=== PATIENT | male | born 1970 | race Caucasian/White ===

== ENCOUNTER 2017-03-01 00:43 | Inpatient (IN) | payer MEDICAID ==
[~2017-03-01] VITALS: Ht 175.3 cm; Wt 72.6 kg
[2017-03-01] MEDS ORDERED: MORPHINE SULFATE INJ 2 MG/ML DISP.SYRIN IV ONE (01:30)
[2017-03-01] MEDS ORDERED: IV NS 0.9% 1,000 ML BAG IV ONE (01:30)
[2017-03-01] MEDS ORDERED: ONDANSETRON HCL/PF 4 MG/2 ML VIAL IVP ONE (01:30)
[2017-03-01] MEDS ORDERED: MORPHINE SULFATE INJ 2 MG/ML DISP.SYRIN ONE (01:54)
[2017-03-01] MEDS ORDERED: ONDANSETRON HCL/PF 4 MG/2 ML VIAL ONE (01:54)
--- NOTE | 2017-03-01 02:00 | NUR ---
pt with mid epigastric pain,has been vomitting for 2days, c/o heartburn, possible dehydration, alert, follows commands, anxious, restless, iv started, labs drawn, meds given, v/s stable, no pain, family at the bedside.
[2017-03-01 02:05] LABS: BASOPHILS % (AUTO) 0.2 % (0.0-2.0); EOSINOPHILS % (AUTO) 0.1 % (0.0-6.0); HEMATOCRIT 54 % (39-51); HEMOGLOBIN 17.8 g/dL (13.5-17.5); LYMPHOCYTES # (AUTO) 1.3 /CMM (0.8-4.8); LYMPHOCYTES % (AUTO) 9.3 % (20.0-44.0); MEAN CORPUSCULAR HEMOGLOBIN 29 PG (26.0-33.0); MEAN CORPUSCULAR HGB CONC 33 g/dl (31.0-36.0); MEAN CORPUSCULAR VOLUME 86 fL (80-96); MONOCYTES # (AUTO) 0.3 /CMM (0.1-1.30); MONOCYTES % (AUTO) 2.2 % (2.0-12.0); NEUTROPHILS # (AUTO) 12.4 /CMM (1.8-8.9); NEUTROPHILS % (AUTO) 88.2 % (43.0-81.0); PLATELET COUNT (AUTO) 258 /CMM (150-450); RDW COEFFICIENT OF VARIATION 13.1 (11.5-15.0); RED BLOOD CELL COUNT(AUTO) 6.26 MIL/uL (4.5-6.0); WHITE BLOOD COUNT (AUTO) 14.1 K/uL (4.3-11.0)
[2017-03-01 02:15] LABS: CALCIUM, SERUM 10.2 mg/dL (8.5-10.1); CARBON DIOXIDE 31 mmol/L (21-32); CHLORIDE 99 mmol/L (98-107); CREATININE 1.4 mg/dL (0.6-1.3); GLUCOSE 136 mg/dL (74-106); SODIUM SERUM 138 mmol/L (136-145); UREA NITROGEN, BLOOD 17 mg/dL (7-18)
[2017-03-01 02:19] LABS: INR 0.91 (0.87-1.13); PROTHROMBIN TIME 9.5 SECS (9.5-12.7)
[2017-03-01 02:21] LABS: ALANINE AMINOTRANSFERASE 83 U/L (12-78); ALBUMIN 4.3 g/dL (3.4-5.0); ALKALINE PHOSPHATASE 130 U/L (46-116); ASPARTATE AMINOTRANSFERASE 31 U/L (15-37); BILIRUBIN,DIRECT 0.1 mg/dL (0.0-0.2); BILIRUBIN,TOTAL 0.7 mg/dL (0.2-1.0); LIPASE 191 U/L (73-393); TOTAL PROTEIN, SERUM 8.3 g/dL (6.4-8.2)
--- NOTE | 2017-03-01 02:28 | NUR ---
PT TO CT
[2017-03-01 02:32] LABS: TROPONIN I < 0.017 ng/mL (0.00-0.056)
--- NOTE | 2017-03-01 02:57 | NUR ---
CALLED FOR M/S BED
[2017-03-01] MEDS ORDERED: LIDOCAINE VISCOUS 2% UD 15 ML UDC MM ONE (03:00)
[2017-03-01] MEDS ORDERED: MAG HYDROX/AL HYDROX/SIMETH 30 ML UDC PO ONE (03:00)
--- NOTE | 2017-03-01 03:12 | NUR ---
M/S [facility] 313-2
[2017-03-01] MEDS ORDERED: ONDANSETRON HCL/PF 4 MG/2 ML VIAL IVP PRN (04:00)
[2017-03-01 04:03] LABS: APPEARANCE,URINE CLEAR (CLEAR); BILIRUBIN,URINE NEGATIVE (NEGATIVE); BLOOD, URINE NEGATIVE Ery/uL (NEGATIVE); COLOR,URINE YELLOW (YELLOW); KETONES,URINE TRACE (NEGATIVE); LEUKOCYTE ESTERASE ,URINE NEGATIVE (NEGATIVE); NITRITE, URINE NEGATIVE (NEGATIVE); PROTEIN,URINE TRACE mg/dl (NEGATIVE); UGLUCOSE NEGATIVE (NEGATIVE); UROBILINOGEN,URINE 0.2 EU/dL (0.2)
[2017-03-01 04:07] LABS: BACTERIA,URINE None seen /HPF (None Seen); RBC,URINE 0-2 /HPF (0-2); SQUAMOUS EPITHELIAL CELL,UR Few /HPF (None Seen); URINE AMORPHOUS URATE Few /HPF (None Seen); WBC,URINE 0-2 /HPF (0-3)
[2017-03-01] MEDS ORDERED: MAG HYDROX/AL HYDROX/SIMETH 30 ML UDC ONE (04:10)
[2017-03-01] MEDS ORDERED: LIDOCAINE VISCOUS 2% UD 15 ML UDC ONE (04:10)
--- NOTE | 2017-03-01 04:42 | NUR ---
Unable to insert NG tube. Pt did not let anybody to insert it, pt tried few times to insert NG tube himself was not able to do it.
[2017-03-01 05:15] VITALS: BP 131/95
--- NOTE | 2017-03-01 05:15 | NUR ---
RN NOTES RECEIVED PATIENT FROM ER FOR DX SMALL BOWEL OBSTRUCTION. AO X 3, ABLE TO MAKE NEEDS KNOWN. NO ACUTE DISTRESS NOTED. PATIENT STATES THAT UPPER ABDOMINAL PAIN COMES ON AND OFF. SKIN ASSESSMENT DONE. IV SITE PATENT, INTACT; FLUSHED. PER FAMILY, PATIENT IS ADDICTED TO BENZODIAZEPINES AND METHAMPHETAMINE. FAMILY IS REQUESTING TO NOT GIVE PATIENT ANY NARCOTIC. PATIENT ON LOW BED WITH BILATERAL UPPER SIDE RAILS UP. CALL BUTTON WITHIN EASY REACH. WILL CONTINUE TO MONITOR.
[2017-03-01] MEDS: IV NS 0.9% 1,000 ML IV PRN ×3 (05:30→21:18)
[2017-03-01 06:00] VITALS: BP 131/95
--- NOTE | 2017-03-01 06:30 | NUR ---
RN NOTES PATIENT ASLEEP, EASILY AROUSABLE. RESPIRATIONS EVEN. NEEDS ATTENDED. KEPT CLEAN AND DRY. SAFETY PRECAUTIONS AND COMFORT MEASURES IN PLACE. WILL GIVE REPORT TO DAY SHIFT FOR CONTINUITY OF CARE.
--- NOTE | 2017-03-01 07:25 | NUR ---
RN OPEN NOTES RECEIVED REPORT FROM MUFFLE WORKER NURSE. PATIENT IS IN BED. ALERT AND ORIENTED TO NAME,PLACE AND TIME. NO SIGNS AND SYMPTOMS OF DISTRESS. PAIN LEVEL 10/10. BED IN LOW POSITION, LOCKED AND TWO SIDE RAILS ARE UP. CALL LIGHT WITHIN REACH FOR SAFETY. WILL CONTINUE TO MONITOR AND ASSESS PATIENT THROUGH OUT MY SHIFT
--- NOTE | 2017-03-01 07:36 | NUR ---
RN NOTES SPOKE WITH PHARMACY REGARDING DR. FRANCOIS'S ORDER FOR TORADOL 15 MG IV Q 6 HOURS PRN AND PATIENT'S ALLERGY TO ASPIRIN. PHARMACY WILL LOOK INTO DRUG INTERACTION.
[2017-03-01 08:00] VITALS: BP 114/72
[2017-03-01] MEDS ORDERED: HYDR-552 PO (08:08)
[2017-03-01] MEDS: PANTOPRAZOLE 40 MG VIAL IV SCH (09:16)
[2017-03-01 16:00] VITALS: BP 120/76
--- NOTE | 2017-03-01 18:37 | NUR ---
RN CLOSING NOTES PATIENT AWAKE IN BED. ALERT AND ORIENTED TO NAME PLACE AND TIME. NO SIGNS OR SYMPTOMS OF DISTRESS OR DISCOMFORT. BREATHING EVEN AND UNLABORED. IV SITE IS INTACT AND PATENT. NO SIGNS OF REDNESS OR INFILTRATION. ALL NEEDS MET. BED IN LOW LOCKED POSITION WITH SIDE RAILS X2. CALL LIGHT WITHIN REACH FOR SAFETY. WILL ENDORSE TO SUPERVISOR DIALS NURSE FOR DWIGHT.
--- NOTE | 2017-03-01 19:50 | NUR ---
MS RN OPENING NOTES RECEIVED PATIENT RESTING IN BED WITH FAMILY @ BED SIDE. A & O X 4, NPO @THIS TIME DUE TO DX SMALL BOWEL OBSTRUCTION. NO SOB, @ RA, NO ACUTE DISTRESS NOTED. LAUGHING, SMILING, MAKING JOKES WITH THE FAMILY. NO C/O PAIN NOTED. IV ACCESS TO LAC WITH NS RUNNING @ 125ML/HR. BED ALARM ON. BED IN LOW LOCKED POSITION. CALL LIGHT WITHIN REACH. WILL CONTINUE TO MONITOR.
[2017-03-01 20:00] VITALS: BP 103/58
--- NOTE | 2017-03-01 21:59 | NUR ---
Patient lives locally with mother/family. He is ambulatory and independent with adl's. Patient pcp is Dr. Marek Edward at [facility]. Current plan is to dc back home when discharge. Addendum: 03/01/17 at 2200 by SANJIV FELIX RN Amended: Links added.
--- NOTE | 2017-03-01 22:17 | NUR ---
NEW IV ATIVAN ORDER PATIENT C/O ANXIETY & SLEEPLESSNESS & KEEP INSISTING TO GIVE HIM MEDICINE FOR ANXIETY & SLEEPLESSNESS. PT IS NPO DUE TO SMALL BOWEL OBSTRUCTION. ON IVF. MD FRANCOIS MADE AWARE WITH NEW ORDER TO GIVE ATIVAN IV 1MG ONCE. NOTED & CARRIED OUT. WILL FOLLOW MD ORDER.
[2017-03-01] MEDS ORDERED: LORAZEPAM INJ 2 MG/ML VIAL IV ONE (22:30)
--- NOTE | 2017-03-01 22:38 | NUR ---
REFUSED ATIVAN @ THIS TIME PT DECIDED NOT TO TAKE ATIVAN @ THIS TIME SINCE HE IS FEELING SLEEPY & RELAXED. WANTS TO TRY TO SLEEP WITHOUT TAKING ATIVAN IV INJ. WILL OBSERVE CLOSELY FOR NEED OF ANTIANXIETY MED & WILL CHECK WITH THE PT LATER WELL.
--- NOTE | 2017-03-02 00:30 | NUR ---
MS RN NOTES PT NOTED TO BE SLEEPING COMFORTABLY & RELAXED, BROTHER @ BED SIDE.
--- NOTE | 2017-03-02 02:37 | NUR ---
MS RN NOTES PATIENT IS STILL ASLEEP COMFORTABLY. IV ATIVAN NOT GIVEN SINCE PT HAS BEEN SLEEPING COMFORTABLY & RELAXED.
[2017-03-02] MEDS: IV NS 0.9% 1,000 ML IV PRN ×2 (05:19→18:41)
--- NOTE | 2017-03-02 06:44 | NUR ---
MS RN CLOSING NOTES PATIENT SLEPT WELL @ NIGHT. NO MORE EPISODE OF SLEEPLESSNESS OR ANXIETY NOTED. BROTHER @ BED SIDE. ATIVAN ORDER WAS RECEIVED FROM DR FRANCOIS PER PT REQUEST BUT NOT GIVEN SINCE PT DECIDED TO TRY TO SLEEP WITHOUT GETTING ATIVAN & SLEPT WELL. NO C/O ABD PAIN NOTED. NPO, IV ACCESS TO LAC, INTACT PATENT, RUNNING WITH NS @ 75 ML/HR. USES URINAL OR BRP WITH ASSISTANCE DUE TO UNSTEADY GAIT. SAFETY MEASURES IN PLACE. BED IN LOW LOCKED POSITION. CALL LIGHT WITHIN REACH. WILL ENDORSE TO AM RN FOR CONTINUITY OF CARE.
--- NOTE | 2017-03-02 07:25 | NUR ---
MS RN OPENING NOTES RECEIVED PATIENT AWAKE AND RESTING @ MODERATE HIGH BACKREST IN BED WITH BROTHER AT BEDSIDE. A/O X 4, DENIES ANY PAIN OR DISCOMFORTS AT THIS TIME. NPO @THIS TIME DUE TO DX SMALL BOWEL OBSTRUCTION. ON ROOM AIR, BREATHING EVEN AND UNLABORED. IV ACCESS ON LAC INTACT AND PATENT WITH NS @ 125ML/HR INFUSING WELL, NO SIGNS OF INFILTRATION NOTED. BED IN LOW AND LOCKED POSITION. CALL LIGHT WITHIN REACH. WILL CONTINUE TO MONITOR.
[2017-03-02 08:00] VITALS: BP 127/85
[2017-03-02] MEDS ORDERED: DIATR MEGLU/DIATRIZOATE SODIUM 120 ML BOTTLE (GASTROGRAPHIN) ONE (09:35)
--- NOTE | 2017-03-02 09:45 | NUR ---
RN NOTES PATIENT JUST LEFT UNIT VIA WHEELCHAIR FOR X-RAY SMALL BOWEL FOLLOW THROUGH.
[2017-03-02] MEDS: PANTOPRAZOLE 40 MG VIAL IV SCH (11:24)
[2017-03-02] MEDS: MORPHINE SULFATE INJ 2 MG/ML DISP.SYRIN IV PRN ×2 (13:46→19:59)
--- NOTE | 2017-03-02 14:15 | NUR ---
RN NOTES PATIENT NOTED WITH SLIGHTLY SWOLLEN RIGHT WRIST AND HAND. HE C/O ACUTE SHARP PAIN ON LEFT WRIST ON MOVEMENT WITH INTENSITY OF 10/10, PRN MORPHINE SULFATE 2MG IVP GIVEN. MD MADE AWARE WITH ORDER FOR X-RAY OF LEFT WRIST TO R/O FRACTURE. MD ALSO MADE AWARE OF PT'S REFUSAL OF HAVING BLOOD WORKS TAKEN TODAY, PT'S STATED THAT HE WAS TRAUMATIZED WHEN BLOOD WAS WITHDRAWN ON HIM IN THE E.R. WILL CONTINUE TO MONITOR.
[2017-03-02] MEDS: KETOROLAC TROMETHAMINE INJ 30 MG/ML VIAL IM PRN (15:21)
[2017-03-02 16:08] VITALS: BP 137/86
--- NOTE | 2017-03-02 16:19 | NUR ---
RN NOTES SPINNERET CLEANER NIK JACKMAN MADE AWARE OF PT'S XR SMALL BOWEL FOLLOW THROUGH. INFORMED ALSO THAT PT HAD BOWEL MOVEMENT X2 WITH SMALL FORMED STOOL AT THIS TIME. SHE ORDERED TO START PT ON CLEAR LIQUID DIET. INFORMED PT AND WAS VERY HAPPY THAT HE CAN FINALLY DRINK WATER. WILL CONTINUE TO MONITOR.
[2017-03-02 17:49] LABS: BASOPHILS % (AUTO) 0.5 % (0.0-2.0); EOSINOPHILS # (AUTO) 0.1 /CMM (0.0-0.7); EOSINOPHILS % (AUTO) 1.2 % (0.0-6.0); HEMATOCRIT 44 % (39-51); HEMOGLOBIN 14.5 g/dL (13.5-17.5); LYMPHOCYTES # (AUTO) 1.3 /CMM (0.8-4.8); LYMPHOCYTES % (AUTO) 15.4 % (20.0-44.0); MEAN CORPUSCULAR HEMOGLOBIN 29 PG (26.0-33.0); MEAN CORPUSCULAR HGB CONC 33 g/dl (31.0-36.0); MEAN CORPUSCULAR VOLUME 87 fL (80-96); MONOCYTES # (AUTO) 0.3 /CMM (0.1-1.30); MONOCYTES % (AUTO) 3.9 % (2.0-12.0); NEUTROPHILS # (AUTO) 6.6 /CMM (1.8-8.9); PLATELET COUNT (AUTO) 199 /CMM (150-450); RDW COEFFICIENT OF VARIATION 13.3 (11.5-15.0); RED BLOOD CELL COUNT(AUTO) 5.04 MIL/uL (4.5-6.0); WHITE BLOOD COUNT (AUTO) 8.4 K/uL (4.3-11.0)
[2017-03-02 18:04] LABS: CALCIUM, SERUM 8.3 mg/dL (8.5-10.1); CREATININE 1.4 mg/dL (0.6-1.3); MAGNESIUM 1.7 mg/dL (1.8-2.4); PHOSPHORUS 2.3 mg/dL (2.5-4.9); POTASSIUM 3.5 mmol/L (3.5-5.1)
[2017-03-02 18:15] LABS: THYROID STIMULATING HORMONE 1.506 uIU/mL (0.358-3.74)
[2017-03-02] MEDS: Magnesium 1GM/D5W 100ML PREMIX 100 ML IV SCH ×2 (18:40→19:58)
--- NOTE | 2017-03-02 18:48 | NUR ---
MS RN CLOSING NOTES PATIENT RESTING COMFORTABLY IN BED AT THIS TIME WITH MOTHER AT BEDSIDE. A/O X 4, SAME VERBALLY RESPONSIVE. ABLE TO TOLERATE LIQUID DIET AT DINNER TIME. PT NOTED WITH LOW LEVEL OF MG 1.7, TO BE REPLACED WITH 1GM/100ML W X2 BAGS. ON ROOM AIR, BREATHING EVEN WITH NO SOB NOTED. IV ACCESS ON LAC INTACT AND PATENT WITH NS @ 125ML/HR INFUSING WELL, NO SIGNS OF INFILTRATION NOTED. KEPT BED IN LOW AND LOCKED POSITION. CALL LIGHT WITHIN REACH. ALL NEEDS AND CARE ATTENDED WELL. WILL ENDOSRED TO HOSPICE LIAISON NURSE FOR DWIGHT.
[2017-03-02 18:52] LABS: ALBUMIN 3.2 g/dL (3.4-5.0); BILIRUBIN,DIRECT 0.1 mg/dL (0.0-0.2); BILIRUBIN,TOTAL 0.6 mg/dL (0.2-1.0); TOTAL PROTEIN, SERUM 6.7 g/dL (6.4-8.2)
--- NOTE | 2017-03-02 19:05 | NUR ---
MS RN OPENING NOTES: RECEIVED PT AND IS AWAKE AND RESTING. PT IS CURRENTLY RECEIVING IV MAGNESIUM BAG AT 100ML/HR. PT HAS MOTHER AT BEDSIDE. PT IS A/OX4. PT ON ROOM AIR AND TOLERATING WELL. NO SOB NOTED AT THIS TIME. IV ACCESS ON L AC#20G AND IS PATENT AND INTACT. PT IS NOW ON CLEAR LIQUIDS DIET. WILL CONTINUE TO MONITOR PT.
[2017-03-02 20:00] VITALS: BP 122/76
--- NOTE | 2017-03-02 20:47 | NUR ---
MS RN NOTES: CALLED DR. Lorena MORIN'S OFFICE AND CELL. NO PICKUP. PT KEPT INSISTING THAT DR. MORIN SAID THAT HE CAN HAVE MASHED POTATOES. SAW IN DR. MORIN'S NOTES THAT DIET CAN BE ADVANCED TOLERATED. PT JUST STARTED CLEAR LIQUIDS DIET AND PT SAID HE IS TOLERATING WELL. NO N/V.
--- NOTE | 2017-03-02 20:57 | NUR ---
MS RN NOTES: GAVE PATIENT HEAT PACK WRAPPED IN SMALL TOWEL TO APPLY ON L WRIST. WILL CONTINUE TO MONITOR PT.
--- NOTE | 2017-03-02 22:41 | NUR ---
MS RN NOTES: PT STILL COMPLAINING OF L WRIST PAIN. WRAPPED WRIST WITH PAWEL BANDAGE. WILL CONTINUE TO MONITOR PT.
--- NOTE | 2017-03-03 00:08 | NUR ---
MS RN NOTES: PT STILL COMPLAINING OF L WRIST PAIN 12/19. PT WAS GIVEN AN ICE PACK THIS TIME AND A PILLOW TO ELEVATE THE ARM. WILL CONTINUE TO MONITOR PT.
[2017-03-03] MEDS: MORPHINE SULFATE INJ 2 MG/ML DISP.SYRIN IV PRN (03:05)
--- NOTE | 2017-03-03 03:05 | NUR ---
MS RN NOTES: PT KEEPS MOANING AND CRYING THAT HIS L WRIST IS VERY PAINFUL 10/10. PT IS SAYING THE PAWEL BANDAGE, THE ICE, AND THE HEAT HAS NOT BEEN HELPING. PT KEEPS CRYING AND SAYING "WHY DOES IT HURT SO MUCH. IT'S PAIN YOU CANNOT UNDERSTAND." HIS BP WAS 126/87 HR 80. PT WAS ADMINISTERED MORPHINE 2MG IV. WILL CONTINUE TO MONITOR PT.
--- NOTE | 2017-03-03 03:42 | NUR ---
MS OSUNA NOTES: PT STILL MOANING AND COMPLAINING OF L WRIST PAIN. PAWEL BANDAGE REAPPLIED ON HIS L WRIST. WILL CONTINUE TO MONITOR. Addendum: 03/03/17 at 0400 by CARLOS EDUARDO CROCKETT RN EVERYTIME HIS L WRIST IS TOUCHED OR GENTLY REPOSITIONED, PT IS MOANING/CRYING OF PAIN.
[2017-03-03] MEDS: IV NS 0.9% 1,000 ML IV PRN (04:57)
[2017-03-03 05:35] VITALS: BP 122/80
[2017-03-03] MEDS: KETOROLAC TROMETHAMINE INJ 30 MG/ML VIAL IM PRN (05:35)
--- NOTE | 2017-03-03 05:35 | NUR ---
MS RN NOTES: PT KEEPS COMPLAINING OF EXCRUCIATING PAIN ON L WRIST /. PT KEEPS MOANING AND CRYING THAT IT IS PAINFUL. BP WAS 122/ 80 HR 72. PT WAS OFFERED TORADOL AND WAS ADMINISTERED IM IN THE RIGHT DELTOID. IN ADDITION, ICE PACK WAS APPLIED AGAIN TO L WRIST. WILL CONTINUE TO MONITOR PT.
--- NOTE | 2017-03-03 06:42 | NUR ---
MS RN CLOSING NOTES: ALL NEEDS WERE ATTENDED AND ANTICIPATED FOR. PT IS ASLEEP AT THIS TIME WITH HOB ELEVATED. PT IS CURRENTLY RECEIVING NS AT 125ML/HR. PT IS A/OX4. PT ON ROOM AIR AND TOLERATING WELL. NO SOB NOTED AT THIS TIME. IV ACCESS ON L AC#20G AND IS PATENT AND INTACT. PT IS NOW ON PUREED DIET. PT TOLERATED CLEAR LIQUIDS LAST NIGHT. L WRIST IS ELEVATED WITH PILLOW. WILL ENDORSE TO AM NURSE FOR DWIGHT.
--- NOTE | 2017-03-03 07:40 | NUR ---
RN OPENING NOTES RECEIVED PT. IN BED SLEEPING. BREATHING UNLABORED, AND EVENLY ON OXYGEN. NO S/S OF ACUTE DISTRESS. IV FLUIDS RUNNING AT 125 ML/HR. PT. HAS URINAL AT BEDSIDE. BED IS IN LOWEST, AND LOCKED POSITION. 2 SIDE RAILS UP, AND CALL LIGHT WITHIN REACH. ALL NEEDS MET. WILL CONTINUE TO ASSESS AND MONITOR.
[2017-03-03 08:00] VITALS: BP 144/88
[2017-03-03] MEDS: PANTOPRAZOLE 40 MG VIAL IV SCH (08:32)
[2017-03-03] MEDS ORDERED: KETOROLAC TROMETHAMINE 10 MG TABLET PO PRN (10:00)
--- NOTE | 2017-03-03 10:00 | NUR ---
RN NOTES MD WAS NOTIFIED ABOUT PT.'S PHOSPHORUS AND MAGNESIUM LEVELS NO NEW ORDERS GIVEN.
--- NOTE | 2017-03-03 10:04 | NUR ---
RN NOTES PT. C/O LEFT HAND PAIN AND DIFFICULTY MOVING WRIST. S/S OF SWELLING NOTED. MD WAS NOTIFIED AND NEW ORDERS WAS GIVEN TO TAKE KEFLEX 500 MG PO Q6HS.
--- NOTE | 2017-03-03 10:30 | NUR ---
RN NOTES PT.'S LEFT ANTECUBITAL IV WAS LEAKING. IV IS INTACT, NO S/S OF REDNESS AT SITE,PT. REQUESTED TO HAVE IV REMOVED AND REFUSED TO RESTART A NEW IV.
[2017-03-03] MEDS: CEPHALEXIN MONOHYDRATE 250 MG CAPSULE PO SCH ×3 (11:44→23:22)
[2017-03-03 16:00] VITALS: BP 136/86
[2017-03-03] MEDS: TRAMADOL HCL 50 MG TABLET PO SCH ×2 (16:54→20:44)
--- NOTE | 2017-03-03 19:36 | NUR ---
RN CLOSING NOTES PT. IN BED A&OX4. BREATHING UNLABORED, AND EVENLY ON OXYGEN. NO S/S OF ACUTE DISTRESS. IV WAS REMOVED TODAY AND PT. REFUSED NEW IV INSERTION. PT. HAS URINAL AT BEDSIDE WITH CLEAR AND YELLOW URINE OUTPUT 1000 CC . BED IS IN LOWEST, AND LOCKED POSITION. WALKER NEAR BEDSIDE. 2 SIDE RAILS UP, AND CALL LIGHT WITHIN REACH. ALL NEEDS MET. WILL ENDORSE REPORT TO NURSE.
[2017-03-03 20:00] VITALS: BP 126/93
--- NOTE | 2017-03-03 20:00 | NUR ---
ms/rn opening notes Received patient in bed, alert, oriented x3, able to verbalize needs, family at bed side, Left hand/wrist elevated, and with observed swollen, patient was informed xray andrea no fx, but antibiotic oral ordered, will monitor, verbalize pain and requeted for as needed pain med at bed time, will follow up., Call lights within reach, bed in lock position. Will continue to monitor.
[2017-03-04] MEDS: TRAMADOL HCL 50 MG TABLET PO SCH ×2 (04:30→12:36)
[2017-03-04] MEDS: CEPHALEXIN MONOHYDRATE 250 MG CAPSULE PO SCH ×2 (06:35→12:36)
--- NOTE | 2017-03-04 07:08 | NUR ---
313-2 MS/RN NOTES PATIENT ALERT, ORIENTED X3. ABLE TO VERBALIZE NEEDS, COOPERATIVE TO CARE, ON ROUTINE PAIN MEDICATION BY MOUTH, OBSERVE GUARDING AND GRIMACE. LEFT WRIST/HAND SWOLLEN, ELEVATED MELISSA WITH PILLOW. INDEPENDENT TO CARE AND ASSIST/SUPERVISE WHILE WALKING IN THE HALLWAY, WILL ENDORSE TO AM RN FOR DWIGHT.
--- NOTE | 2017-03-04 07:25 | NUR ---
RN OPENING NOTES RECEIVED PT. IN BED SLEEPING. BREATHING UNLABORED, AND EVENLY ON OXYGEN. NO S/S OF ACUTE DISTRESS. PT. HAS URINAL AT BEDSIDE. BED IS IN LOWEST, AND LOCKED POSITION. 2 SIDE RAILS UP, AND CALL LIGHT WITHIN REACH. ALL NEEDS MET. WILL CONTINUE TO ASSESS AND MONITOR.
--- NOTE | 2017-03-04 08:04 | NUR ---
RN NOTES PT. WAS SEEN AND EXAMINED BY . PT. C/O LEFT HAND PAIN. DISCUSSED WITH MD NEW ORDERS GIVEN FOR AN STAT LEFT HAND CT WITHOUT CONTRAST.
--- NOTE | 2017-03-04 08:07 | NUR ---
RN NOTES PT. LEFT ROOM FOR CT SCAN.
--- NOTE | 2017-03-04 08:29 | NUR ---
RN NOTES TALKED TO DR. Tino MORIN VIA PHONE, NEW ORDER WAS GIVEN TO CLEAR PT. FOR DISCHARGE. DR. DICKSON WAS NOTIFIED.
--- NOTE | 2017-03-04 15:02 | NUR ---
BUYER GRAIN NOTE PT. LEFT IN MEDICALLY STABLE CONDITION. PT.'S GOING HOME WITH BROTHER BY PRIVATE CARE. DISCHARGE INSTRUCTIONS AND EDUCATIONS WAS PROVIDED AND PT. VERBALIZED UNDERSTANDING. DISCHARGE PAPER SIGNED. BELONGINGS CHECKED AND PAPER WAS SIGNED. ID BAND WAS REMOVED. ALL QUESTIONS ANSWERED. PT. LEFT BY WHEELCHAIR WITH DISCHARGE PAPERS IN HAND.
== END 2017-03-04 15:01 | disposition home or self-care (01) | DRG 247 ==
LOC: ER 00:45 → MED 03:45
DX: K56.609 Unspecified intestinal obstruction, unspecified as to partial versus complete obstruction (principal); N17.0 Acute kidney failure with tubular necrosis; J69.0 Pneumonitis due to inhalation of food and vomit; F11.20 Opioid dependence, uncomplicated; E87.2 Acidosis; I10 Essential (primary) hypertension; Z88.0 Allergy status to penicillin; Z88.8 Allergy status to other drugs, medicaments and biological substances; V89.2XXS Person injured in unspecified motor-vehicle accident, traffic, sequela; F19.21 Other psychoactive substance dependence, in remission; F17.200 Nicotine dependence, unspecified, uncomplicated; G89.29 Other chronic pain; K56.7 Ileus, unspecified; J21.9 Acute bronchiolitis, unspecified; L03.114 Cellulitis of left upper limb
CPT/HCPCS: 36415; 71010-TC; 73100-TC; 73200-TC; 74000-TC; 74250-TC; 76705-TC; 76882; 80048-TC; 80061-TC; 80076-TC; 81000-TC; 83605-TC; 83690-TC; 83735-TC; 84100-TC; 84443-TC; 84484-TC; 85025-TC; 85730-TC; 87040-TC; 87081-TC; 93971-TC; A4606; C9113; J1885; J2270; J2405; J3475; J7030; Q9963; Z7610